=== PATIENT | female | born 1975 | race Caucasian/White ===

== ENCOUNTER 2017-04-27 22:13 | Emergency (ER) | payer SELFPAY ==
[~2017-04-27] VITALS: Ht 157.5 cm; Wt 86.2 kg
[2017-04-27] MEDS ORDERED: LIDOCAINE HCL 2% 20 ML VIAL TP ONE (23:45)
[2017-04-27] MEDS ORDERED: LET TOPICAL SOLUTION 8 ML UDC TP ONE (23:45)
[2017-04-27] MEDS ORDERED: ONDANSETRON 4 MG/2 ML VIAL IM ONE (23:45)
[2017-04-27] MEDS ORDERED: SODIUM BICARBONATE 4.2 % (NEUT) 5 ML VIAL TP ONE (23:45)
[2017-04-27] MEDS ORDERED: HYDROMORPHONE 1 MG/1 ML DISP.SYRIN IM ONE (23:45)
[2017-04-28] MEDS ORDERED: LET TOPICAL SOLUTION 8 ML UDC ONE (00:23)
[2017-04-28] MEDS ORDERED: ONDANSETRON 4 MG/2 ML VIAL ONE (00:23)
[2017-04-28] MEDS ORDERED: HYDROMORPHONE 1 MG/1 ML DISP.SYRIN ONE (00:23)
--- NOTE | 2017-04-28 01:35 | NUR ---
Patient discharged to home in stable conditon. Written and verbal after care instructions given. Patient verbalizes understanding of instructions.
== END 2017-04-28 01:37 | disposition home or self-care (01) ==
LOC: ER 22:14
DX: L02.31 Cutaneous abscess of buttock (principal)
CPT/HCPCS: A4663; J1170; J2405